=== PATIENT | female | born 2000 | race Caucasian/White ===

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

== ENCOUNTER 2021-02-26 21:34 | Emergency (ER) | payer BC, OTHER, SELFPAY ==
[~2021-02-26] VITALS: Ht 170.2 cm; Wt 122.7 kg
[~2021-02-26 21:34] MED LIST changes: -LR 1,000 ML IV ONE; -dexameTHASONE 4 MG/ML 1ML VIAL (J1100) IV ONE
[2021-02-27] MEDS ORDERED: ACETAMINOPHEN 500 MG TAB PO ONE (01:50)
[2021-02-27 02:20] VITALS: BP 146/75
[2021-02-27] MEDS ORDERED: AUGMENTIN 875 MG TAB PO ONE (02:20)
[2021-02-27] MEDS ORDERED: AUGM875T28 PO (02:23)
== END 2021-02-27 02:32 | disposition home or self-care (01) ==
LOC: M ED 21:34
DX: S61.204A Unspecified open wound of right ring finger without damage to nail, initial encounter (principal); S50.812A Abrasion of left forearm, initial encounter; W54.0XXA Bitten by dog, initial encounter; Y92.018 Other place in single-family (private) house as the place of occurrence of the external cause; Z79.3 Long term (current) use of hormonal contraceptives

== ENCOUNTER → 2023-08-23 | Outpatient (CLI) | payer OTHER ==
[~2023-08-23] MED LIST changes: +AUGM875T28 PO
== END ==
LOC: M WHC 11:20
PROVIDERS: ATTEND Physician Assistant
DX: K40.90 Unilateral inguinal hernia, without obstruction or gangrene, not specified as recurrent (principal)

== ENCOUNTER → 2023-11-08 | Outpatient (REF) | payer OTHER, BC ==
[2023-11-08 20:02] LABS: GC DNA AMPLIFICATION NEGATIVE (NEGATIVE)
[2023-11-08 21:09] LABS: Trichomonas vaginalis (AMP) NOT DETECTED (NEGATIVE)
== END ==
LOC: M PLALAB 15:28
PROVIDERS: ATTEND Obstetrics & Gynecology
DX: Z01.419 Encounter for gynecological examination (general) (routine) without abnormal findings (principal)